=== PATIENT | female | born 1930 | race Caucasian/White ===

== ENCOUNTER 2017-04-28 11:31 | Observation (INO) ==
--- NOTE | 2017-04-28 12:02 | Emergency Department Note ---
Disposition Clinical Impression: Lower gastrointestinal bleed Diverticulosis Qualifiers: Diverticulosis site: diverticulosis of large intestine Diverticulosis bleeding : diverticulosis with bleeding Qualified Code(s): K57.31 - Diverticulosis of large intestine without perforation or abscess with bleeding Disposition: Admitted As Inpatient GI Bleed HPI - General Chief complaint: ED GI Bleed Stated complaint: blood in stool this am Time Seen by Provider: 04/28/17 11:39 Source: patient, family Mode of arrival: ambulatory Limitations: no limitations Nursing Notes Reviewed: Yes Vital Signs Reviewed: Yes - History of Present Illness HPI Narrative: 86-year-old female who states she had a bloody bowel movement this morning. The patient states that she had some bleeding about 10 years ago and had appropriate resection of her bowel. She has had no problems since. 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 [employer] Consistency: intermittent Severity: moderate Improves with: nothing Worsens with: nothing Context: history of GI bleed Associated symptoms: Reports: none Treatments Prior to Arrival: none - Related Data Home Medications Medication Instructions Recorded Confirmed Aspirin 81 mg PO DAILY 04/05/16 04/28/17 Carvedilol 3.125 mg PO BID 04/05/16 04/28/17 Clopidogrel Bisulfate [Plavix] 75 mg PO DAILY 04/05/16 04/28/17 Furosemide [Lasix] 20 mg PO QPM 04/05/16 04/28/17 Furosemide [Lasix] 40 mg PO QAM 04/05/16 04/28/17 LORazepam [Ativan] 0.5 mg PO BID 04/05/16 04/28/17 Lisinopril [Zestril] 5 mg PO DAILY 04/05/16 04/28/17 Nitroglycerin [Nitrostat] 0.4 mg SL AD PRN 04/05/16 04/28/17 Potassium Chloride [K-Tab ER] 20 meq PO DAILY 04/05/16 04/28/17 Ranitidine HCl [Heartburn Relief] 150 mg PO BID 04/05/16 04/28/17 Simvastatin [Zocor] 20 mg PO DAILY 04/05/16 04/28/17 Allergies Allergy/AdvReac Type Severity Reaction Status Date / Time Penicillins [PCN] Allergy Hives Verified 04/28/17 13:20 Sulfa (Sulfonamide Allergy Hives Verified 04/28/17 13:20 Antibiotics) All systems ED: reviewed and negative except as stated. Constitutional: Denies: fever, chills, weakness, weight change Eyes: Denies: eye pain, eye discharge, vision change ENT ED: Denies: ear pain, throat pain, dental pain, hearing loss, epistaxis, congestion, dysphagia Cardiovascular: Denies: chest pain, palpitations, dyspnea on exertion, edema, syncope Respiratory: Denies: cough, dyspnea, wheezes, hemoptysis, stridor Gastrointestinal: Reports: hematochezia. Denies: abdominal pain, nausea, vomiting, diarrhea, constipation, hematemesis, melena Genitourinary: Denies: dysuria, frequency, hematuria, discharge Musculoskeletal: Denies: back pain, neck pain, arthralgia, myalgia Integumentary: Denies: rash, abrasion, lesions Neurological: Denies: headache, weakness, numbness, paresthesias, confusion, abnormal gait, vertigo Psychiatric: Denies: anxiety, depression, suicidal thoughts, homicidal thoughts , auditory hallucinations, visual hallucinations Endocrine: Denies: fatigue Hematological/Lymphatic: Denies: easy bleeding, easy bruising Allergic/Immunologic: Denies: facial swelling, urticaria Past Medical History - Past Medical History Medical history: Reports: CHF, coronary artery disease, CVA, dementia, diabetes , hyperlipidemia, hypertension, myocardial infarction Surgical history: Reports: appendectomy, cholecystectomy, hysterectomy, other Psychiatric history: Reports: anxiety, depression - Social History Smoking Status: Former smoker Smokeless Tobacco Status: No Alcohol use: Reports: rarely Drug use: Reports: none Physical Exam - General Limitations: no limitations General appearance: alert, in no apparent distress - Head Head exam: atraumatic, normocephalic, normal inspection - Eye Eye exam: Present: normal appearance, PERRL, EOMI - ENT ENT exam: normal exam, normal oropharynx, mucous membranes moist - Neck Neck exam: Present: normal inspection, full ROM, trachea midline - Chest Chest inspection: Present: normal inspection, symmetric chest wall rise - Respiratory Respiratory exam: Present: normal lung sounds bilaterally - Cardiovascular Cardiovascular exam: Present: regular rate, normal rhythm, normal heart sounds - Abdominal Exam Abdominal exam: Present: soft, Non-Tender. Absent: tenderness, distention, guarding, rebound, rigidity - Extremities Exam Extremities exam: Present: normal inspection, full ROM. Absent: tenderness, pedal edema - Expanded Lower Extremity Exam Neurovascular/Tendon exam: Absent: motor deficit, sensory deficit, tendon deficit Gait: observed and normal - Back Exam Back exam: Present: normal inspection, full ROM. Absent: tenderness - Neurological Exam Neurological exam: Present: alert, oriented X3 - Psychiatric Psychiatric exam: Present: normal affect, normal mood - Skin Skin exam: Present: warm, dry, intact, normal color Course Vital Signs Temperature 97.6 F 04/28/17 11:40 Pulse Rate 49 04/28/17 11:40 Respiratory Rate 16 04/28/17 11:40 Blood Pressure 125/72 04/28/17 11:40 O2 Sat by Pulse Oximetry 100 04/28/17 11:40 Temperature 98.9 F 04/28/17 16:57 Pulse Rate 53 04/28/17 16:57 Respiratory Rate 15 04/28/17 16:57 Blood Pressure 122/66 04/28/17 16:57 O2 Sat by Pulse Oximetry 96 04/28/17 16:57 Oxygen Delivery Oxygen Delivery Room Air GI Bleed - Lab Data Result diagrams: 04/28/17 16:34 04/28/17 12:08 Lab Results 04/28/17 04/28/17 04/28/17 Range/Units 12:08 12:08 12:08 WBC 7.7 (4.3-11.1) K/mcL RBC 4.08 (3.82-4.97) M/mcL Hgb 12.1 (11.5-15.4) g/dL Hct 38.0 (35.3-44.9) % MCV 93.1 (83.0-100.0) fL MCH 29.7 (28.0-33.3) pg MCHC 31.8 (31.6-35.5) g/dL RDW 14.1 (11.5-14.5) % Plt Count 159 (140-400) K/mcL MPV 11.4 (9.4-12.4) fL Immature Gran % 0.3 (0-4) % Seg Neutrophils % 79.9 % Lymphocytes % 11.9 % Monocytes % 6.2 % Eosinophils % 1.3 % Basophils % 0.4 % Neutrophils # 6.2 (1.6-8.9) K/mcL Lymphocytes # 0.9 (0.6-4.6) K/mcL Monocytes # 0.5 (0.0-1.3) K/mcL Eosinophils # 0.1 (0.0-0.6) K/mcL Basophils # 0.0 (0.0-0.2) K/mcL PT 11.2 (9.4-12.1) Seconds INR 1.0 APTT 31.0 (26.0-36.0) Seconds Sodium 139 (136-145) mEq/L Potassium 3.8 (3.5-4.5) mEq/L Chloride 108 (98-109) mEq/L Carbon Dioxide 20 (19-29) mEq/L BUN 29 H (7-20) mg/dL Creatinine 1.40 H (0.57-1.11) mg/dL Est GFR ( Amer) 43 L (> 60) Est GFR (Non-Af Amer) 35 L (> 60) BUN/Creatinine Ratio 21 (6-26) Glucose 110 H (70-99) mg/dL Calculated Osmolality 294 (280-300) Calcium 8.6 (8.6-10.8) mg/dL Blood Type Antibody Screen 04/28/17 Range/Units 12:08 WBC (4.3-11.1) K/mcL RBC (3.82-4.97) M/mcL Hgb (11.5-15.4) g/dL Hct (35.3-44.9) % MCV (83.0-100.0) fL MCH (28.0-33.3) pg MCHC (31.6-35.5) g/dL RDW (11.5-14.5) % Plt Count (140-400) K/mcL MPV (9.4-12.4) fL Immature Gran % (0-4) % Seg Neutrophils % % Lymphocytes % % Monocytes % % Eosinophils % % Basophils % % Neutrophils # (1.6-8.9) K/mcL Lymphocytes # (0.6-4.6) K/mcL Monocytes # (0.0-1.3) K/mcL Eosinophils # (0.0-0.6) K/mcL Basophils # (0.0-0.2) K/mcL PT (9.4-12.1) Seconds INR APTT (26.0-36.0) Seconds Sodium (136-145) mEq/L Potassium (3.5-4.5) mEq/L Chloride (98-109) mEq/L Carbon Dioxide (19-29) mEq/L BUN (7-20) mg/dL Creatinine (0.57-1.11) mg/dL Est GFR ( Amer) (> 60) Est GFR (Non-Af Amer) (> 60) BUN/Creatinine Ratio (6-26) Glucose (70-99) mg/dL Calculated Osmolality (280-300) Calcium (8.6-10.8) mg/dL Blood Type A POSITIVE Antibody Screen NEGATIVE - Radiology Data Radiology results reviewed: Yes I reviewed the patient's radiology results. Abdomen/Pelvis CT 04/28/17 11:52 IMPRESSION: No acute process demonstrated. Diverticulosis of the descending and sigmoid colon may account for rectal bleeding D/ / Tip Umanzor MD / Tip Umanzor MD Interpreting Provider: Tip Umanzor MD - EKG Data EKG attestation: Yes I reviewed and interpreted this EKG. EKG shows normal: sinus rhythm Rate: normal Rhythm: NSR ST segment depression in: v5, v6 When compared to previous EKG there are: no significant changes (04/06/2016) Interpretation: no acute changes
[2017-04-28 12:18] LABS: Basophils % 0.4 %; Eosinophils # 0.1 K/mcL (0.0-0.6); Eosinophils % 1.3 %; Hemoglobin 12.1 g/dL (11.5-15.4); Immature Granulocytes % 0.3 % (0-4); Lymphocytes # 0.9 K/mcL (0.6-4.6); Lymphocytes % 11.9 %; Mean Corpuscular HGB Conc 31.8 g/dL (31.6-35.5); Mean Corpuscular Hemoglobin 29.7 pg (28.0-33.3); Mean Corpuscular Volume 93.1 fL (83.0-100.0); Mean Platelet Volume 11.4 fL (9.4-12.4); Monocytes # 0.5 K/mcL (0.0-1.3); Monocytes % 6.2 %; Neutrophils # 6.2 K/mcL (1.6-8.9); Platelet Count 159 K/mcL (140-400); Red Blood Count 4.08 M/mcL (3.82-4.97); Red Cell Distribution Width 14.1 % (11.5-14.5); Segmented Neutrophils % 79.9 %
[2017-04-28 12:28] LABS: Prothrombin Time 11.2 Seconds (9.4-12.1)
[2017-04-28 12:29] LABS: Calcium 8.6 mg/dL (8.6-10.8); Potassium 3.8 mEq/L (3.5-4.5)
[2017-04-28] MEDS ORDERED: Ondansetron ODT 4 MG TAB.RAPDIS SL ONE (12:57)
--- NOTE | 2017-04-28 14:01 | Internal Med History&Physical ---
Date of Encounter: 04/28/17 Time of Encounter: 14:00 Assessment and Plan (1) Lower gastrointestinal bleed Current visit: Yes Status: Acute Nothing by mouth after midnight. Start bowel prep. Possible colonoscopy tomorrow morning, will add Protonix twice a day in view of recent use of nonsteroidal anti-inflammatory and decaffeinated materia chronic use of aspirin and Plavix if her colonoscopy is negative may consider EGD. Resume anticoagulant as soon as possible once okay with monotyper (2) CAD (coronary artery disease) Current visit: No Status: Acute Hold on Plavix and aspirin for now in view of lower GI bleeding, resume IF okay with monotyper after colonoscopy,DISCUSSED WITH CARDIOLOGY TEAM ABOUT PREOP evaluation for colonoscopy. Patient was told in the past that she cannot go through any surgical procedure. Discussed with cardiology on-call recommended to wait for her manager orange to evaluate her next morning Qualifiers: Coronary Disease-Associated Artery/Lesion type: unspecified vessel or lesion type [place] vs. transplanted heart: [place] heart Associated angina: with unspecified angina Qualified Code(s): I25.119 - Atherosclerotic heart disease of [place] coronary artery with unspecified angina pectoris (3) Hyperlipidemia Current visit: No Status: Acute CONTINUE CURRENT MEDICATION Qualifiers: Qualified Code(s): E78.5 - Hyperlipidemia, unspecified (4) Aortic stenosis Current visit: No Status: Chronic Qualifiers: Cardiac valve disease etiology: etiology unspecified Qualified Code(s): I35.0 - Nonrheumatic aortic (valve) stenosis Internal Medicine - H&P: HPI Chief complaint: Rectal bleeding Admitted From: Home History of present illness: Ms. Becerril is a 86 year old female with PMH of CAD. Patient has history of gastrointestinal bleeding in the past. Patient brought to the hospital by family. Patient stated she wake up this morning and she had bloody bowel movement. Patient denies any black stool. Patient denies any change in her bowel movement compared to her baseline. Patient described her bloody bowel movement as more than one cup of blood . Patient denies any gastroesophageal reflux disease-like symptom. Patient is taking Plavix and aspirin in addition may be one cup of coffee daily ,take Aleve maybe twice a week. 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 Patient states over last 10 years she has not had any blood in stool until today. Patient denies any chest pain or shortness of breath patient , She denies any dizziness or lightheadedness. Patient denies any fever or chills. Past Med Surg Social Fam HX - Past Medical History Medical history: CHF, coronary artery disease (s/P STENT ), CVA, diabetes, hyperlipidemia, hypertension, myocardial infarction, valvular heart disease () , other Psychiatric history: anxiety - Past Surgical History Surgical History: appendectomy, cholecystectomy, hysterectomy, other (oarthial bowel resection ) - Social History Smoking Status: Former smoker (Used to smoke 0.5 pack a day for 10 years she quit 60 years ago) Smokeless Tobacco Status: No Alcohol use: rarely Drug use: none - Family History Mother Living Status: Hx Family Cardiac Disorders: Yes - Additional Family History Additional family history: Father has a history of diabetes mother has a history of coronary artery disease sister and a brother has a history of coronary artery disease Internal Medicine - H&P: Meds Aspirin 81 mg PO DAILY 04/05/16 [History] Carvedilol 3.125 mg PO BID 04/05/16 [History] Clopidogrel Bisulfate [Plavix] 75 mg PO DAILY 04/05/16 [History] Furosemide [Lasix] 20 mg PO QPM 04/05/16 [History] Furosemide [Lasix] 40 mg PO QAM 04/05/16 [History] LORazepam [Ativan] 0.5 mg PO BID 04/05/16 [History] Lisinopril [Zestril] 5 mg PO DAILY 04/05/16 [History] Nitroglycerin [Nitrostat] 0.4 mg SL AD PRN 04/05/16 [History] Potassium Chloride [K-Tab ER] 20 meq PO DAILY 04/05/16 [History] Ranitidine HCl [Heartburn Relief] 150 mg PO BID 04/05/16 [History] Simvastatin [Zocor] 20 mg PO DAILY 04/05/16 [History] 3 Allergy/AdvReac Type Severity Reaction Status Date / Time Penicillins [PCN] Allergy Hives Verified 04/28/17 13:20 Sulfa (Sulfonamide Allergy Hives Verified 04/28/17 13:20 Antibiotics) All Systems PM: A 10-system review of systems was performed and is negative for pertinent findings except as documented above in the HPI. - Constitutional Vitals: Temp Pulse Resp BP Pulse Ox 97.6 F 67 13 116/57 99 04/28/17 11:40 04/28/17 13:25 04/28/17 13:25 04/28/17 13:25 04/28/17 13:25 General appearance: Present: A&O X 3, pleasant, no acute distress - Head Head exam: Present: atraumatic, normocephalic - Respiratory Respiratory exam: Present: decreased breath sounds. Absent: accessory muscle use, rales, rhonchi, wheezes - Cardiovascular Cardiovascular exam: Present: RRR, +S1, +S2, systolic murmur (EJECTION SYSTOLIC MURMUR). Absent: gallop, rubs - GI/Abdominal GI/Abdominal exam: Present: normal bowel sounds, soft, tenderness (Epigastric tenderness), no peritoneal signs. Absent: distended - Extremities Exam Extremities exam: Present: warm, radial pulses palpable and symmetrical. Absent : calf tenderness, cyanotic, pedal edema - Skin Skin exam: Present: dry, intact Internal Med - H&P Results - Labs CBC & Chem 7: 04/28/17 16:34 04/28/17 12:08 Labs: Short CBC 04/28/17 Range/Units 12:08 WBC 7.7 (4.3-11.1) K/mcL Hgb 12.1 (11.5-15.4) g/dL Hct 38.0 (35.3-44.9) % Plt Count 159 (140-400) K/mcL Neutrophils # 6.2 (1.6-8.9) K/mcL BMP 04/28/17 12:08 Sodium 139 Potassium 3.8 Chloride 108 Carbon Dioxide 20 BUN 29 H Creatinine 1.40 H Glucose 110 H Calcium 8.6 - Impressions ITS Impressions Abdomen/Pelvis CT 04/28/17 11:52 IMPRESSION: No acute process demonstrated. Diverticulosis of the descending and sigmoid colon may account for rectal bleeding D/ / Tip Umanzor MD / Tip Umanzor MD Interpreting Provider: Tip Umanzor MD
[2017-04-28] MEDS ORDERED: SODIUM CHLORIDE/NAHCO3/KCL/PEG 4,000 ML SOLN.RECON PO ONE (15:25)
[2017-04-28] MEDS ORDERED: Nitroglycerin 0.4 MG TAB.SUBL SL PRN (15:32)
[2017-04-28] MEDS ORDERED: Acetaminophen 325 MG TABLET PO PRN (15:43)
[2017-04-28] MEDS ORDERED: Ondansetron ODT 4 MG TAB.RAPDIS SL PRN (15:43)
[2017-04-28 16:42] LABS: Hematocrit 35.6 % (35.3-44.9); Hemoglobin 11.4 g/dL (11.5-15.4)
[2017-04-28 16:53] LABS: Magnesium 1.8 mg/dL (1.6-2.6); Phosphorous 3.9 mg/dL (2.3-4.7)
[2017-04-28] MEDS: Pantoprazole 40 MG VIAL IVP SCH (21:05)
[2017-04-28] MEDS: *HR* LORazepam 0.5 MG TABLET PO SCH (21:05)
[2017-04-28 22:59] LABS: Hematocrit 35.5 % (35.3-44.9); Hemoglobin 11.4 g/dL (11.5-15.4)
[2017-04-29 03:49] LABS: Basophils % 0.5 %; Eosinophils # 0.2 K/mcL (0.0-0.6); Eosinophils % 3.1 %; Hematocrit 35.1 % (35.3-44.9); Hemoglobin 11.3 g/dL (11.5-15.4); Immature Granulocytes % 0.3 % (0-4); Immature Platelets 6.7 % (1.1-6.1); Lymphocytes # 1.6 K/mcL (0.6-4.6); Mean Corpuscular HGB Conc 32.2 g/dL (31.6-35.5); Mean Corpuscular Hemoglobin 29.9 pg (28.0-33.3); Mean Corpuscular Volume 92.9 fL (83.0-100.0); Mean Platelet Volume 11.7 fL (9.4-12.4); Monocytes # 0.5 K/mcL (0.0-1.3); Monocytes % 7.7 %; Neutrophils # 4.1 K/mcL (1.6-8.9); Platelet Count 140 K/mcL (140-400); Red Blood Count 3.78 M/mcL (3.82-4.97); Segmented Neutrophils % 63.4 %
[2017-04-29 04:05] LABS: Magnesium 1.8 mg/dL (1.6-2.6); Phosphorous 4.2 mg/dL (2.3-4.7)
[2017-04-29 04:06] LABS: Calcium 8.6 mg/dL (8.6-10.8); Potassium 3.7 mEq/L (3.5-4.5)
--- NOTE | 2017-04-29 08:11 | Electrocardiograph Report ---
[place] [id number] Test Date: 2017-04-28 Pat Name: Payton Becerril Department: 102 Room: 2A16 Gender: F Commercial Sales Consultant: Lisa : 1930 Requested By: Josh Mejia Order Number: [id number] Reading MD: Fatoumata Franklin Measurements Intervals [place] Rate: 51 P: 64 MD: 181 QRS: -66 QRSD: 162 T: 35 QT: 492 QTc: 470 Interpretive Statements SINUS BRADYCARDIA RIGHT BUNDLE BRANCH BLOCK LEFT ANTERIOR FASCICULAR BLOCK LEFT VENTRICULAR HYPERTROPHY AND ST-T CHANGE Electronically Signed On 04-29-2017 8:09:39 EDT by Fatoumata Franklin
[2017-04-29 08:34] LABS: Hematocrit 34.4 % (35.3-44.9); Hemoglobin 11.1 g/dL (11.5-15.4)
[2017-04-29] MEDS: *HR* LORazepam 0.5 MG TABLET PO SCH (09:14)
--- NOTE | 2017-04-29 09:22 | Cardiology Progress Note ---
Date of Encounter: 04/29/17 Time of Encounter: 09:16 Assessment and Plan Discussion w patient/family: The assessment and plan as outlined above was discussed with the patient and/or family members who expressed understanding and agreement. All questions were answered. Thank you for involving us in the care of your patient. Please call with any questions. Subjective Principal diagnosis: Hematochezia Interval history: Consultation requested regarding preoperative evaluation prior to colonoscopy. Anesthesia: MAC. Functional capacity: Previous history: Multivessel CAD, ischemic cardiomyopathy. Multivessel PCI performed at [facility] in September 2012, including GEOVANY to left circumflex and 4 Pat to LAD. Low-flow, low- gradient severe aortic stenosis. Deemed a poor surgical candidate for aortic valve replacement at [facility]. Ultimately, conservative medical management was recommended for aortic stenosis given the patient's advanced age and baseline dementia. Previous testing: ECG 04/28/2017 personally reviewed: Sinus rhythm, right bundle branch block, possible left anterior fascicular block. LVH with secondary ST and T-wave changes noted. TTE 08/11/2014: LVEF 30%. Mild LVH. Low-flow, low gradient severe aortic stenosis. Moderate aortic regurgitation. Objective Vital Signs, Last 4 Hours Temp Pulse Resp BP Pulse Ox 04/29/17 07:07 97.6 F 65 17 103/58 94 04/29/17 05:36 98.2 F 56 18 105/56 96 General: Conversant, No Apparent Distress HEENT: Atraumatic, Normocephaly, Mucus Membranes Moist Neck: No JVD, Normal carotid pulses Cardiac: Reg Rate and Rhythm, Other (Grade 3 systolic ejection murmur, late peaking.) Lungs: Normal Breath Sounds, No Wheeze, Rales, Rhonchi Neuro: Alert and responsive, Other (Dementia.) Abdomen: Soft, Non-Tender Skin: No rashes noted on visualized skin Musculoskeletal: No Chest Wall Tenderness Extremities: No Clubbing, No Cyanosis, No Edema Results 04/29/17 07:37 04/29/17 03:21 Lab Results 04/28/17 04/28/17 04/28/17 16:34 16:34 22:40 WBC Hgb 11.4 L 11.4 L Hct 35.6 35.5 Plt Count Sodium Potassium Chloride Carbon Dioxide BUN Creatinine Glucose Calcium Magnesium 1.8 04/29/17 04/29/17 04/29/17 03:21 03:21 03:21 WBC 6.4 Hgb 11.3 L Hct 35.1 L Plt Count 140 Sodium 142 Potassium 3.7 Chloride 109 Carbon Dioxide 24 BUN 29 H Creatinine 1.46 H Glucose 86 Calcium 8.6 Magnesium 1.8 04/29/17 07:37 WBC Hgb 11.1 L Hct 34.4 L Plt Count Sodium Potassium Chloride Carbon Dioxide BUN Creatinine Glucose Calcium Magnesium - Imaging and Cardiology Echo: report reviewed Consult Discharge Plan - Plan Referrals: Evy Edward DO [Primary Care Provider] - 05/04/17 4:15 pm (Please follow up as schedule...)
--- NOTE | 2017-04-29 11:14 | Gastroenterology Consult Note ---
<Simeon Gutierres - Last Filed: 04/29/17 11:12> Date of Encounter: 04/29/17 Time of Encounter: 10:15 - Assessment and plan (1) Lower gastrointestinal bleed Status: Acute Assessment and plan: Recommend colonoscopy to identify source of bleed. Bowel prep was ordered overnight, but pt refused the prep. Pt refuses colonoscopy at this time. Risks of not completing the colonoscopy explained to pt, and she continues to refuse. Recommend daily fiber supplement. (2) CAD (coronary artery disease) Status: Acute Qualifiers: Coronary Disease-Associated Artery/Lesion type: unspecified vessel or lesion type [place] vs. transplanted heart: [place] heart Associated angina: with unspecified angina Qualified Code(s): I25.119 - Atherosclerotic heart disease of [place] coronary artery with unspecified angina pectoris - Time Spent With Patient Total time spent is greater than 50% in coordination of care (as documented) at patient's floor/unit and/or counseling patient: GI History of Present Illness - Data of Consult Patient: new to practice Consult date: 04/29/17 Requesting Physician: Ale Solitario MD - Consult Narrative Reason for consult: GI Bleed History of present illness: Ms. Becerril is a 86 year old female with PMHx of CHF, CAD s/p stent-on Plavix, CVA, DM, HLD, HTN, [place], and GI bleeding who presented to the ED with c/o bloody bowel movement. She denied any melena. She describes he bloody BM as more than one cup of blood. She does take Plavix and ASA. 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 Patient states over last 10 years she has not had any blood in stool until now. She denies fever, chills, chest pain, shortness of breath, abdominal pain, nausea, or vomiting. Procedures: Colonoscopy 06/03/2006 Dr. Valente: 2.4 cm area of ulceration and necrosis in cecum, Meckel's diverticulum with benign small bowel mucosa. NSAIDs: ASA, Aleve (twice per week) Anticoagulation: Plavix Past Med Surg Social Fam HX - Past Medical History Medical history: CHF, coronary artery disease, CVA, dementia, diabetes, hyperlipidemia, hypertension, myocardial infarction Psychiatric history: anxiety, depression - Past Surgical History Surgical History: appendectomy, cholecystectomy, hysterectomy, other - Social History Smoking Status: Former smoker Smokeless Tobacco Status: No Alcohol use: rarely Drug use: none - Family History Mother Living Status: Hx Family Cardiac Disorders: Yes - Gastrointestinal Gastrointestinal: Present: as per HPI - Constitutional Constitutional: as per HPI - EENT Eyes: as per HPI Ears: Present: as per HPI Nose, mouth and throat: Present: as per HPI - Cardiovascular Cardiovascular ROS: Present: as per HPI - Respiratory Respiratory IM: Present: as per HPI - Genitourinary Genitourinary: Absent: change in color, Urinary frequency - Neurological ROS Neurological GI: Present: as per HPI - Hematologic/Lymphatic Hematologic/Lymphatic pediatric: Present: as per HPI - Musculoskeletal Musculoskeletal ROS GI: Present: as per HPI - Integumentary Integumentary GI: Present: as per HPI - Psychiatric ROS Psychiatric GI: Present: as per HPI - Endocrine Endocrine IM: Present: as per HPI - Constitutional Vitals: Temp Pulse Resp BP Pulse Ox 97.6 F 65 17 103/58 94 04/29/17 07:07 04/29/17 07:07 04/29/17 07:07 04/29/17 07:07 04/29/17 07:07 General appearance: Present: cooperative, A&O X 3, no acute distress, answers questions appropriately - Head Head exam: Present: atraumatic, normocephalic - Eye Eye exam: Present: normal appearance, sclera anicteric - ENT ENT exam: Present: mucous membranes dry - Neck Neck exam general surgery: Present: normal inspection, trachea midline - Respiratory Respiratory exam: Present: decreased breath sounds, CTAB. Absent: rales, rhonchi - Cardiovascular Cardiovascular exam: Present: RRR, +S1, +S2 - GI/Abdominal GI/Abdominal exam: Present: soft, no peritoneal signs. Absent: distended, firm , guarding, tenderness - Rectal Rectal exam: Present: deferred - Extremities Exam Extremities exam: Present: warm - Neurological Exam Neurological exam: Present: no focal deficits - Psychiatric Psychiatric exam: Present: normal affect, normal mood - Skin Skin exam: Present: dry, intact, normal color, warm Results - Labs CBC & Chem 7: 04/29/17 07:37 04/29/17 03:21 Labs: Last Result Calcium 8.6 mg/dL (8.6-10.8) 04/29/17 03:21 Entire Visit Hgb 11.1 g/dL (11.5-15.4) L 04/29/17 07:37 Hct 34.4 % (35.3-44.9) L 04/29/17 07:37 PT 11.2 Seconds (9.4-12.1) 04/28/17 12:08 - ABG ABG results: PT/INR, D-dimer PT 11.2 Seconds (9.4-12.1) 04/28/17 12:08 Consult Discharge Plan - Plan Instructions: Diverticulitis (DC) Referrals: Evy Edward DO [Primary Care Provider] - 05/04/17 4:15 pm (Please follow up as schedule...) <Bonifacio Briscoe - Last Filed: 04/29/17 16:37> Date of Encounter: 04/29/17 Time of Encounter: 15:00 - Time Spent With Patient Total time spent is greater than 50% in coordination of care (as documented) at patient's floor/unit and/or counseling patient: GI History of Present Illness - Data of Consult Requesting Physician: Ale Solitario MD - Consult Narrative History of present illness: Ms. Becerril is a 86 year old female - Constitutional Vitals: Temp Pulse Resp BP Pulse Ox 97.9 F 60 17 106/62 96 04/29/17 12:26 04/29/17 12:26 04/29/17 12:26 04/29/17 12:26 04/29/17 12:26 Results - Labs CBC & Chem 7: 04/29/17 07:37 04/29/17 03:21 Labs: Last Result Calcium 8.6 mg/dL (8.6-10.8) 04/29/17 03:21 Entire Visit Hgb 11.1 g/dL (11.5-15.4) L 04/29/17 07:37 Hct 34.4 % (35.3-44.9) L 04/29/17 07:37 PT 11.2 Seconds (9.4-12.1) 04/28/17 12:08 - ABG ABG results: PT/INR, D-dimer PT 11.2 Seconds (9.4-12.1) 04/28/17 12:08 - Attending Attestation I examined this patient and my medical decision-making was reviewed with the Resident Physician. I agree with the documented findings, disposition and treatment plan as described except to the extent set forth below. Patient with episode of rectal bleeding yesterday, bleeding has subsided. No abdominal pain . patient/family do not want any scope done at this point
--- NOTE | 2017-04-29 12:09 | Cardiology Consult Note ---
Date of Encounter: 04/29/17 Time of Encounter: 12:07 Assessment and Plan (1) Pre-op evaluation Current Visit: Yes Status: Acute 86-year-old with a known history of severe multivessel CAD, previous multivessel PCI at [facility]. Resultant severe ischemic cardiomyopathy. Low-flow, low gradient severe aortic stenosis. Previously evaluated at [facility]. Patient deemed a poor surgical candidate. Medical therapy recommended. Baseline dementia. Presented with possible GI bleed. Endoscopy recommended. Patient declined prep last night and patient's daughter states they do not want to proceed with this procedure. From a risk standpoint, patient represents a high risk candidate for this low risk procedure. All questions were answered. (2) Ischemic cardiomyopathy Current Visit: Yes Status: Acute Prior multivessel PCI. Recommend continue aspirin/statin/BB. Blood pressure unlikely to tolerate TEO inhibitor. Okay to hold Plavix given concern for GI bleed. CHF education provided, including a low sodium diet and 2 L daily fluid restriction. (3) Severe aortic stenosis Current Visit: Yes Status: Acute Low-flow, low gradient severe aortic stenosis. Medical therapy previously recommended. Recommend continue aspirin, statin, and beta jeannette therapy. Discussion w patient/family: The assessment and plan as outlined above was discussed with the patient and/or family members who expressed understanding and agreement. All questions were answered. Thank you for involving us in the care of your patient. Please call with any questions. History of Present Illness Consult date: 04/29/17 Requesting physician: Forrest Harris Consult reason: Preop Chief complaint: GI bleed History of present illness: Consultation requested regarding preoperative evaluation prior to colonoscopy. Patient known to me from the clinic. Baseline dementia. Known history as described below. Anesthesia: MAC. Functional capacity: Previous history: Multivessel CAD, ischemic cardiomyopathy. Multivessel PCI performed at [facility] in September 2012, including GEOVANY to left circumflex and 4 Pat to LAD. Low-flow, low- gradient severe aortic stenosis. Deemed a poor surgical candidate for aortic valve replacement at [facility]. Ultimately, conservative medical management was recommended for aortic stenosis given the patient's advanced age and baseline dementia. Previous testing: ECG 04/28/2017 personally reviewed: Sinus rhythm, right bundle branch block, possible left anterior fascicular block. LVH with secondary ST and T-wave changes noted. TTE 08/11/2014: LVEF 30%. Mild LVH. Low-flow, low gradient severe aortic stenosis. Moderate aortic regurgitation. Past Med Surg Social Fam HX - Past Medical History Medical history: CHF, coronary artery disease, CVA, dementia, diabetes, hyperlipidemia, hypertension, myocardial infarction, valvular heart disease Psychiatric history: anxiety, depression - Past Surgical History Surgical History: appendectomy, cholecystectomy, hysterectomy, other - Social History Smoking Status: Former smoker Smokeless Tobacco Status: No Alcohol use: rarely Drug use: none - Family History Mother Living Status: Hx Family Cardiac Disorders: Yes Medications and Allergies Aspirin 81 mg PO DAILY 04/05/16 [History] Carvedilol 3.125 mg PO BID 04/05/16 [History] Clopidogrel Bisulfate [Plavix] 75 mg PO DAILY 04/05/16 [History] Furosemide [Lasix] 20 mg PO QPM 04/05/16 [History] Furosemide [Lasix] 40 mg PO QAM 04/05/16 [History] LORazepam [Ativan] 0.5 mg PO BID 04/05/16 [History] Lisinopril [Zestril] 5 mg PO DAILY 04/05/16 [History] Nitroglycerin [Nitrostat] 0.4 mg SL AD PRN 04/05/16 [History] Potassium Chloride [K-Tab ER] 20 meq PO DAILY 04/05/16 [History] Ranitidine HCl [Heartburn Relief] 150 mg PO BID 04/05/16 [History] Simvastatin [Zocor] 20 mg PO DAILY 04/05/16 [History] 3 Allergy/AdvReac Type Severity Reaction Status Date / Time Penicillins [PCN] Allergy Hives Verified 04/28/17 13:20 Sulfa (Sulfonamide Allergy Hives Verified 04/28/17 13:20 Antibiotics) ROS unobtainable: due to mental status All Systems Review: A 10-system review of systems was performed and is negative for pertinent findings except as documented above in the HPI. - Gastrointestinal Gastrointestinal: hematochezia Physical Examination General: Conversant, No Apparent Distress HEENT: Atraumatic, Normocephaly, Mucus Membranes Moist Neck: No JVD Cardiac: Reg Rate and Rhythm (Grade 2-3 systolic ejection murmur, late peaking) , Other Lungs: Normal Breath Sounds, No Wheeze, Rales, Rhonchi Neuro: Alert and responsive, Other (Dementia) Abdomen: Soft, Non-Tender Skin: No rashes noted on visualized skin Musculoskeletal: No Chest Wall Tenderness Extremities: No Clubbing, No Edema Results 04/29/17 07:37 04/29/17 03:21 Lab Results 04/28/17 04/28/17 04/28/17 16:34 16:34 22:40 WBC Hgb 11.4 L 11.4 L Hct 35.6 35.5 Plt Count Sodium Potassium Chloride Carbon Dioxide BUN Creatinine Glucose Calcium Magnesium 1.8 04/29/17 04/29/17 04/29/17 03:21 03:21 03:21 WBC 6.4 Hgb 11.3 L Hct 35.1 L Plt Count 140 Sodium 142 Potassium 3.7 Chloride 109 Carbon Dioxide 24 BUN 29 H Creatinine 1.46 H Glucose 86 Calcium 8.6 Magnesium 1.8 04/29/17 07:37 WBC Hgb 11.1 L Hct 34.4 L Plt Count Sodium Potassium Chloride Carbon Dioxide BUN Creatinine Glucose Calcium Magnesium - Imaging and Cardiology Echo: report reviewed Cardiac cath: report reviewed Consult Discharge Plan - Plan Referrals: Evy Edward DO [Primary Care Provider] - 05/04/17 4:15 pm (Please follow up as schedule...)
[2017-04-29 12:28] VITALS: BP 106/62
[2017-04-29] MEDS: Pantoprazole 40 MG VIAL IVP SCH (13:46)
--- NOTE | 2017-04-29 14:21 | Discharge Summary ---
Date of Encounter: 04/29/17 Time of Encounter: 11:00 - Discharge Diagnosis (1) Lower gastrointestinal bleed Priority: Primary Status: Acute (2) Diverticulosis Priority: Primary Status: Chronic Qualifiers: Diverticulosis site: diverticulosis of large intestine Diverticulosis bleeding: diverticulosis with bleeding Qualified Code(s): K57.31 - Diverticulosis of large intestine without perforation or abscess with bleeding (3) Diabetes Priority: Secondary Status: Chronic Qualifiers: Diabetes mellitus type: type 2 Diabetes mellitus complication status: with kidney complications Diabetes mellitus complication detail: with chronic kidney disease Diabetes mellitus usp insulin use: without usp use Chronic kidney disease stage: stage 3 (moderate) Qualified Code(s): E11.22 - Type 2 diabetes mellitus with diabetic chronic kidney disease; N18.3 - Chronic kidney disease, stage 3 (moderate); N18.3 - Chronic kidney disease, stage 3 (moderate) (4) CAD (coronary artery disease) Priority: Secondary Status: Chronic Qualifiers: Coronary Disease-Associated Artery/Lesion type: [place] artery [place] vs. transplanted heart: [place] heart Associated angina: without angina Qualified Code(s): I25.10 - Atherosclerotic heart disease of [place] coronary artery without angina pectoris (5) Hypertension Priority: Secondary Status: Chronic Qualifiers: Hypertension type: essential hypertension Qualified Code(s): I10 - Essential (primary) hypertension (6) Hyperlipidemia Priority: Secondary Status: Chronic Qualifiers: Hyperlipidemia type: unspecified Qualified Code(s): E78.5 - Hyperlipidemia , unspecified (7) Ischemic cardiomyopathy Priority: Secondary Status: Chronic (8) Severe aortic stenosis Priority: Secondary Status: Chronic - Discharge Medications Home Medications: Aspirin 81 mg PO DAILY 04/05/16 [History] Carvedilol 3.125 mg PO BID 04/05/16 [History] Furosemide [Lasix] 20 mg PO QPM 04/05/16 [History] Furosemide [Lasix] 40 mg PO QAM 04/05/16 [History] LORazepam [Ativan] 0.5 mg PO BID 04/05/16 [History] Lisinopril [Zestril] 5 mg PO DAILY 04/05/16 [History] Nitroglycerin [Nitrostat] 0.4 mg SL AD PRN 04/05/16 [History] Potassium Chloride [K-Tab ER] 20 meq PO DAILY 04/05/16 [History] Ranitidine HCl [Heartburn Relief] 150 mg PO BID 04/05/16 [History] Simvastatin [Zocor] 20 mg PO DAILY 04/05/16 [History] Clopidogrel Bisulfate [Plavix] 75 mg PO DAILY #0 05/09/17 [Rx] Allergies/Adverse Reactions: 3 Allergy/AdvReac Type Severity Reaction Status Date / Time Penicillins [PCN] Allergy Hives Verified 04/28/17 13:20 Sulfa (Sulfonamide Allergy Hives Verified 04/28/17 13:20 Antibiotics) Date of admission: 04/28/17 15:32 Primary care physician: Dulce Bach Consults: 04/28/17 15:45 Consult to Physical Therapy [CONS] Routine Comment: Evaluate, develop and implement POC Reason for Consult: physical deconditioing 04/29/17 08:23 Consult to Cardiology [CONS] Routine Comment: Consulting Provider: Cardiology Rianna Reason for Consult: Preop clearance for colonoscopy; h/o- CAD/stents, Call Completed: Yes Discharging clinician: Ale Solitario Anticipated date of discharge: 04/29/17 - Patient Status Disposition: Home, Self-Care Condition: Fair Functional capacity at discharge: uses cane/walker Overall status at discharge: patient is progressing back to baseline - Discharge Instructions Instructions: Diverticulitis (DC) Follow Up With: Evy Edward DO [Primary Care Provider] - 05/04/17 4:15 pm (Please follow up as schedule...) - Diet and Activity Activity: resume usual activities as tolerated Diet: diabetic diet, low fat, low cholesterol, low salt diet, other (renal diet) Hospital course: Ms. Becerril is a 86 year old female with the above medical problems who was admitted with bright red bleeding per rectum. Patient was kept nothing by mouth and started on IV hydration, hemoglobin was monitored closely. She did have a 1 g drop in hemoglobin, but did not require PRBC transfusion and had no further episodes of bleeding since admission. CT abdomen/pelvis showed evidence of diverticulosis in descending and sigmoid colon. GI was consulted and patient was recommended to undergo colonoscopy. Patient and family declined due to her underlying severe cardiovascular disease and increased risk of undergoing any kind of procedure under general anesthesia. Patient was also evaluated by cardiology and cleared with high risk for colonoscopy. Patient is currently able to tolerate diet, no further episodes of bleeding and this is likely self-limited diverticular bleed. She is medically stable for discharge with outpatient follow-up. She is encouraged to continue with high- fiber, low-fat diet and to avoid constipation. - Time Spent with Patient Total time spent providing and/or coordinating discharge services: Greater than 30 minutes (45 min) - Constitutional Vitals: Temp Pulse Resp BP Pulse Ox 97.9 F 60 17 106/62 96 04/29/17 12:26 04/29/17 12:26 04/29/17 12:26 04/29/17 12:26 04/29/17 12:26 General appearance: Present: A&O X 3, answers questions appropriately - Respiratory Respiratory exam: Present: CTAB. Absent: accessory muscle use, rales, rhonchi, wheezes - Cardiovascular Cardiovascular exam: Present: RRR, +S1, +S2, systolic murmur. Absent: diastolic murmur, gallop, rubs
== END 2017-04-29 16:20 | disposition home or self-care (01) ==
LOC: 2ANU 11:31 → EMEROO 11:31 → SUATTDRO 15:32 → 2ANU 16:40
PROVIDERS: ADMIT Family Medicine; ATTEND Internal Medicine